=== PATIENT | female | born 1960 | race Caucasian/White ===

== ENCOUNTER 2021-11-26 08:00 | Outpatient (CLI) | payer BC ==
--- NOTE | 2021-11-26 14:15 | XRAY Report ---
PROCEDURE: Wrist 3 View LT INDICATIONS: LEFT WRIST PAIN/FALL TECHNIQUE: 3 views of the wrist were acquired. COMPARISON: None. FINDINGS: Bones: There is a minimally displaced intra-articular fracture of the distal radial metaphysis. No s uspicious bony lesions. Soft tissues: No suspicious soft tissue calcifications. IMPRESSION: Distal radial metaphyseal fracture. Reviewed by: Jamey Starr MD on 11/26/2021 1:13 PM [facility]DT Approved by: Jamey Starr MD on 11/26/2021 1:13 PM AKDT Station ID: [id number]
== END 2021-11-26 23:59 | disposition home or self-care (01) ==
LOC: DI.S 08:00
PROVIDERS: ATTEND Physician Assistant Medical
DX: S52.592A Other fractures of lower end of left radius, initial encounter for closed fracture (principal)